=== PATIENT | male | born 1950 ===

== ENCOUNTER 2016-08-04 12:13 | Emergency (ER) | payer OTHER ==
--- NOTE | 2016-08-04 17:18 | ER ---
HISTORY OF PRESENT ILLNESS: A 65-year-old male here after he was fishing and a fish that he caught actually bit the patient in the webspace between the thumb and index finger on the right hand. The patient states his finger still works. He has a little bit of numbness on the medial side, but otherwise everything works. It did bleed really good for a minute or so and then they stop the bleeding with pressure. The patient is current on his tetanus status. OBJECTIVE: GENERAL APPEARANCE: The patient is awake and alert. No obvious distress. VITAL SIGNS: Reviewed as listed. EXTREMITIES: Examining the right thumb and hand reveals a jagged laceration centrally located involving the web space between the thumb and index finger. There is no active bleeding. The cut goes below the epidermis and into the subcu tissues slightly. DIAGNOSIS: Lacerations to right hand approximately 3 cm in length. TREATMENT PLAN: The site had been soaked by nursing staff. I injected 1% lidocaine with epinephrine locally for anesthesia after which a sterile field was acquired. I then cleansed the area once again with Betadine and sutured the laceration. It required 5 sutures using 5-0 Ethilon. The patient tolerated the procedure well. Post-care instructions, nursing staff cleansed the site and applied antibiotic ointment and a dressing. He is to change the dressing daily. He is to monitor closely for infection. The patient is going back home tomorrow. [id number] medications should be used as needed, and the sutures should come out in about 1 week. ALEIDA/DEANDRE /[id number]
== END 2016-08-04 13:00 | disposition home or self-care (01) ==
LOC: LB.ED 12:13
DX: S61.411A Laceration without foreign body of right hand, initial encounter (principal); W56.51XA Bitten by other fish, initial encounter; Y93.89 Activity, other specified
CPT/HCPCS: 12002; 99283-25